=== PATIENT | female | born 1985 | race Caucasian/White ===

== ENCOUNTER 2016-10-06 09:29 | Emergency (ER) | payer OTHER ==
[~2016-10-06 09:29] MED LIST: ALBUTEROL17 GM INH; ATIVAN PO; AZO STANDARD97.5 MG; BACITRACIN30 GM TOP; BACTRIM DS TABL1 TA1 PO; BENTYL20 MG PO; DICLOFENAC PO; IBUPROFEN200 M1 PO; IRON; LORTAB 5/500 TA1 TA1 PO; PHENERGAN25 MG PO
[2016-10-06] MEDS ORDERED: NO MEDICATIONS (09:36)
[2016-10-06 09:58] LABS: URINE SOURCE CLEAN CATCH
[2016-10-06 10:02] LABS: URINE APPEARANCE CLEAR; URINE BILIRUBIN NEG (NEG); URINE BLOOD NEG (NEG); URINE COLOR YELLOW; URINE GLUCOSE NEG (NORM); URINE KETONE NEG (NEG); URINE LEUKOCYTE ESTERASE NEG (NEG); URINE NITRATE NEG (NEG); URINE PH 7.5 (5-8); URINE PROTEIN NEG (NEG); URINE UROBILINOGEN 0.2 MG/DL (NORM)
[2016-10-06 10:04] LABS: MICRO INDICATED? NO
== END 2016-10-06 11:38 | disposition home or self-care (01) ==
LOC: SED 09:29
PROVIDERS: Emergency Medicine
DX: K52.9 Noninfective gastroenteritis and colitis, unspecified (principal); J45.909 Unspecified asthma, uncomplicated; Z90.49 Acquired absence of other specified parts of digestive tract; F17.200 Nicotine dependence, unspecified, uncomplicated; Z88.8 Allergy status to other drugs, medicaments and biological substances
CPT/HCPCS: 81003; 84703; 96374; 96375; 99284; J2405